=== PATIENT | female | born 2000 | race Caucasian/White ===

== ENCOUNTER 2022-09-13 17:11 | Emergency (ER) | payer MEDICAID | END 2022-09-13 18:00 | disposition left against medical advice (07) | LOC: ED 17:11 | DX: Z53.21 Procedure and treatment not carried out due to patient leaving prior to being seen by health care provider (principal) ==

== ENCOUNTER 2023-05-15 14:59 | Inpatient (IN) | payer OTHER ==
[2023-05-15] MEDS ORDERED: Lactated Ringers 1,000 ML IV ONE ×5 (15:47→22:49)
[2023-05-15] MEDS ORDERED: FENTANYL 2 MCG-BUPIV 0.125%-NS 250 ML Epidur 250 ML EPIDURAL SCH (16:00)
[2023-05-15 16:10] LABS: Absolute Neutrophil Ct (ANC) 8.32 x10^3/uL (1.4-6.9); BASOPHIL % 0.4 % (0.0-0.4); Basophil (Absolute #) 0.04 x10^3/uL (0-0.4); Eosinophil % 1.5 % (0.00-5.0); Eosinophil (Absolute #) 0.17 x10^3/uL (0-0.5); Hematocrit 36.2 % (35-47); Hemoglobin 11.7 g/dL (12.0-16.0); IMMATURE GRAN # 0.06 x10^3u/L (0.00-0.03); IMMATURE GRAN % 0.5 % (0.00-0.4); Lymphocyte (Absolute #) 1.71 x10^3/uL (1.0-4.6); Lymphocytes % 15.6 % (24.0-44.0); Mean Cell Volume 81.2 fL (78-100); Mean Corpuscular Hemoglobin 26.2 pg (26-32); Mean Corpuscular Hgb Concent. 32.3 g/dL (32-36); Mean Platelet Volume 11.1 fL (7.5-11.0); Monocyte (Absolute #) 0.68 x10^3/uL (0.0-1.3); Monocytes % 6.2 % (0.0-12.0); Neutrophil % 75.8 % (36.0-66.0); Platelet Count 217 x10^3/uL (150-450); Red Blood Count 4.46 x10^6/uL (4.1-5.4); Red Cell Distribution Width 12.7 % (11.5-14.0)
[2023-05-15] MEDS ORDERED: Ephedrine Sulfate 50 MG/ML IV PRN (16:21)
[2023-05-15 16:39] LABS: Amphetamine,Urine NEGATIVE (NEGATIVE); Barbiturate,Urine NEGATIVE (NEGATIVE); Benzodiazepine,Urine NEGATIVE (NEGATIVE); Cocaine,Urine NEGATIVE (NEGATIVE); Methadone,Urine NEGATIVE (NEGATIVE); Opiate,Urine NEGATIVE (NEGATIVE); PCP,Urine NEGATIVE (NEGATIVE); THC,Urine NEGATIVE (NEGATIVE)
[2023-05-15 16:47] LABS: ABO TYPING A
[2023-05-15 16:48] LABS: Antibody Screen NEGATIVE (NEGATIVE); RH TYPING POSITIVE
[2023-05-15] MEDS: Lactated Ringers 1,000 ML IV SCH (16:51)
--- NOTE | 2023-05-15 19:41 | PCM.HP ---
History of Present Illness - Chief Complaint Chief Complaint: labor Date: 05/15/23 History of Present Illness: is a 22 year old female G1 at 40 0/7wks entering active phase labor, with start of ctx around 0600, got strong around 1400 today. Had some bloody show that has lessened since arrival. Notes good movements. Denies other complaints or gush of fluid. - Review of Systems Constitutional: No Symptoms Abdominal/Gastrointestinal: Other (contractions) Genitourinary Symptoms: No Symptoms Medications & Allergies Home Medications: Home Medication List No Home Meds [No Home Meds] 1 ea MC UD 12/12/14 [History Confirmed 12/12/14] Smz/Tmp Ds Tablet [Bactrim Ds Tablet] 1 tab PO BID #20 tablet 12/12/14 [Rx] Allergies/Adverse Reactions: Allergies Allergy/AdvReac Type Severity Reaction Status Date / Time No Known Drug Allergies Allergy Unverified 12/12/14 17:17 - Past Medical History Past Medical History: Yes Neurological History: No Pertinent History ENT History: No Pertinent History Cardiac History: No Pertinent History Respiratory History: No Pertinent History Endocrine Medical History: No Pertinent History Musculoskelatal History: No Pertinent History GI Medical History: No Pertinent History History: No Pertinent History Pyscho-Social History: Depression, Other Reproductive Disorders: No Pertinent History Comment: Patient states, she has autism. - Female History Expected Date of Delivery: 05/15/23 - Past Surgical History Past Surgical History: Yes (colonoscopy) Neuro Surgical History: No Pertinent History Cardiac History: No Pertinent History Respiratory Surgery: No Pertinent History GI Surgical History: No Pertinent History Genitourinary Surgical Hx: No Pertinent History Musculskeletal Surgical Hx: No Pertinent History Female Surgical History: No Pertinent History - Social History Smoking Status: Former smoker Exposure to second hand smoke: No Alcohol: Rarely Drug Use: none - Physical Exam Vital Signs: Vital Signs - 24 hr Temp Pulse Resp BP BP Pulse Ox 05/15/23 19:00 98.2 F 85 20 151/72 100 05/15/23 18:00 98.8 F 72 20 130/64 05/15/23 17:00 98.8 F 81 20 150/85 05/15/23 16:41 98.8 F 76 20 124/79 98 01/28/24 16:15 98.8 F 77 20 124/79 05/15/23 15:45 98.0 F 05/15/23 14:59 98.8 F 76 20 124/79 98 General Appearance: no apparent distress, alert Neurologic Exam: alert, cooperative, normal mood/affect Eye Exam: PERRL/EOMI Neck Exam: normal inspection Respiratory Exam: No respiratory distress Cardiovascular Exam: regular rate/rhythm Gastrointestinal/Abdomen Exam: soft, No tenderness Pelvic Exam: normal external exam Extremity Exam: normal inspection Results - Labs Lab/Micro Results: Lab Results-Last 24 Hours 05/15/23 05/15/23 05/15/23 Range/Units 16:00 16:00 16:00 WBC 11.0 H (4.0-10.5) x10^3/uL RBC 4.46 (4.1-5.4) x10^6/uL Hgb 11.7 L (12.0-16.0) g/dL Hct 36.2 (35-47) % MCV 81.2 (78-100) fL MCH 26.2 (26-32) pg MCHC 32.3 (32-36) g/dL RDW 12.7 (11.5-14.0) % Plt Count 217 (150-450) x10^3/uL MPV 11.1 H (7.5-11.0) fL Gran % 75.8 H (36.0-66.0) % Immature Gran % (Auto) 0.5 H (0.00-0.4) % Nucleat RBC Rel Count 0.0 (0.00-0.1) % Eos # (Auto) 0.17 (0-0.5) x10^3/uL Immature Gran # (Auto) 0.06 H (0.00-0.03) x10^3u/L Absolute Lymphs (auto) 1.71 (1.0-4.6) x10^3/uL Absolute Monos (auto) 0.68 (0.0-1.3) x10^3/uL Absolute Nucleated RBC 0.00 (0.00-0.01) x10^3u/L Lymphocytes % 15.6 L (24.0-44.0) % Monocytes % 6.2 (0.0-12.0) % Eosinophils % 1.5 (0.00-5.0) % Basophils % 0.4 (0.0-0.4) % Absolute Granulocytes 8.32 H (1.4-6.9) x10^3/uL Basophils # 0.04 (0-0.4) x10^3/uL Urine Opiates Level NEGATIVE (NEGATIVE) Ur Methadone NEGATIVE (NEGATIVE) Urine Barbiturates NEGATIVE (NEGATIVE) Ur Phencyclidine (PCP) NEGATIVE (NEGATIVE) Urine Amphetamine NEGATIVE (NEGATIVE) U Benzodiazepine Level NEGATIVE (NEGATIVE) Urine Cocaine NEGATIVE (NEGATIVE) Urine Marijuana (THC) NEGATIVE (NEGATIVE) ABO Group A Rh Factor POSITIVE Antibody Screen NEGATIVE (NEGATIVE) Assessment/Plan (1) Normal labor Current Visit: Yes Status: Acute Assessment & Plan: 22 y/o G1 in active labor at 40 0/7wks, now comfortable with epidural and AROM performed with clear fluid. IUPC placed to assess if pitocin warranted to achieve adequate ctx (MVUs 200-300 goal or cervical change). GBS negative. status reassuring, category I. Some intermittent, mild range htn noted, so will check urine pr:cr and if elevated, do CMP as well; will follow clinically as anticipate improvement now that pain is well-controlled with epidural. Anticipate . complicated by hx PCOS and obesity. EFW [id number]. Code(s): O80 - ENCOUNTER FOR FULL-TERM UNCOMPLICATED DELIVERY; Z37.9 - OUTCOME OF DELIVERY, UNSPECIFIED
[2023-05-15 20:05] LABS: Appearance Clear (Clear); Bacteria None Seen /HPF (None Seen); Bilirubin Negative (Negative); Blood Negative (Negative); Epithelial Cells None Seen /HPF (None Seen); Glucose, Urine Negative (Negative); Hyaline Casts NONE SEEN /LPF (0-2); Ketones Trace (Negative); Leukocyte Esterase Negative (Negative); Nitrite Negative (Negative); Protein,Urine Dip 30 (Negative); RBC 0-2 /HPF (0-5); Specific Gravity 1.015 (1.005-1.030); Urobilinogen 0.2 mg/dL (0.2); WBC 0-2 /HPF (0-5)
[2023-05-15 20:06] LABS: Creatinine, Urine Random 115.6 mg/dl; Protein Creatinine Ratio, Ran. 0.23 mg/mg (0.0-0.15)
[2023-05-15 20:07] LABS: ADD URINE CULTURE? ORDERED SEPARATELY (NO)
[2023-05-15] MEDS ORDERED: PITOCIN 30 UNITS/ LR 500 ML 30 UNITS/500 ML PLAST..BAG IV SCH (20:15)
[2023-05-15] MEDS: PITOCIN 30 UNITS/ LR 500 ML 30 UNITS/500 ML PLAST..BAG IV SCH (21:00)
[2023-05-15] MEDS ORDERED: Zofran 4 MG/2 ML VIAL IV PRN (21:38)
[2023-05-15] MEDS ORDERED: XYLOCAINE 1% HCL 20 ML MDV ONE (22:28)
[2023-05-15 22:45] LABS: VBG CARBOXYHEMOGLOBIN 0.5 % T HGB (0.0-6.9); VBG HCO3- 19.2 meq/L (22-28); VBG HEMOGLOBIN 18.9; VBG O2 SATURATION 41.3 (95-100); VBG POTASSIUM 5.1 (3.5-5.1)
[2023-05-15 22:46] LABS: VBG pH 7.21 (7.32-7.42)
--- NOTE | 2023-05-15 23:34 | PCM.NOTE ---
Prolonged deceleration started at 215 to the 90s with conservative measures initiated including discontinuance of pitocin. I was called to room at 215 and found pt to be complete with disrupted monitoring. FSE applied at 220 and attempted pushing. Pt found to be ROP, about 15 degrees off of straight OP. Attempt made to digitally rotate baby to OA which was poorly tolerated. I called for kessler forceps and the OR team which had already been called. I verbally consented pt for forceps assisted delivery vs vacuum and risk of injury to baby or increased tearing for her. She consented to proceed. Pelvis adequate. Masters cut to remove. An additional attempt to rotate baby digitally was unsuccessful. Pushing efforts were poor, so pitocin was resumed at 6 milliunits/min. Fetus remained +2 station with SAL position, less than 45 degrees off of midline. Forceps arrived and pt consented to placement, but she did not tolerate the attempt at 2210, so consented instead for vacuum assistance with increased risk of injury discussed, as well as emergent need for delivery given FHR deceleration continued. Vacuum applied and correct position confirmed at 2212. With push pull efforts, had 3 popoffs and reapplication (2213 popoff & reapplication, 2215 popoff & reapplication 2216, and 2217 popoff). However, at this point, descent had been made to on the perineum, +4, but was unable to deliver with pushing alone and FHR remained in deceleration in the 90s. OR team still had not arrived, so given the descent with vacuum attempts, I recommended trial of forceps with risk of increased tearing as 3rd or 4th degree discussed. Pt consented given emergent nature of case and that OR team was not present, so outlet forceps applied with Kessler forceps and with next push/pull delivered vigorous male. Forceps were removed just before delivery of the head and delivered OP with right shoulder anterior. with strong cry placed on maternal abdomen. Delayed cord clamping done. Pitocin added to IVF bolus. Cord gases and cord blood collected. Intact placenta with 3VC delivered spontaneously at 4. Cervix, vagina, and perineum explored with note of 2nd degree laceration and left labial tear; 2nd degree was repaired with 3-0 Vicryl in a standard fashion. Labial lac was hemostatic and not repaired. QBL 150ml. APGARs 8 and 9. Wt 3700g. and mother recovering in room in good condition. Arterial gas pH 7.08, BE -13.2; venous pH 7.21, BE -9. Cytotec 1000mcg given MN at 2251.
[2023-05-16] MEDS ORDERED: TYLENOL EXTRA STRENGTH 500 MG PO PRN (00:45)
[2023-05-16] MEDS ORDERED: Mylicon 80MG PO PRN (00:45)
[2023-05-16] MEDS ORDERED: LANSINOH 40 GM TOP PRN (00:45)
[2023-05-16] MEDS ORDERED: Dermoplast Spray TP PRN (00:45)
[2023-05-16] MEDS ORDERED: NORCO 5/325 MG PO PRN (00:45)
[2023-05-16] MEDS ORDERED: Dulcolax 10 MG SUPP PR PRN (00:45)
[2023-05-16] MEDS: MOTRIN 400 MG PO PRN (00:55)
[2023-05-16 04:43] LABS: Absolute Neutrophil Ct (ANC) 12.66 x10^3/uL (1.4-6.9); BASOPHIL % 0.3 % (0.0-0.4); Basophil (Absolute #) 0.04 x10^3/uL (0-0.4); Eosinophil % 0.1 % (0.00-5.0); Eosinophil (Absolute #) 0.01 x10^3/uL (0-0.5); Hematocrit 28.8 % (35-47); IMMATURE GRAN # 0.06 x10^3u/L (0.00-0.03); IMMATURE GRAN % 0.4 % (0.00-0.4); Lymphocyte (Absolute #) 1.86 x10^3/uL (1.0-4.6); Lymphocytes % 11.7 % (24.0-44.0); Mean Cell Volume 81.8 fL (78-100); Mean Corpuscular Hemoglobin 26.1 pg (26-32); Mean Corpuscular Hgb Concent. 31.9 g/dL (32-36); Mean Platelet Volume 11.4 fL (7.5-11.0); Monocyte (Absolute #) 1.26 x10^3/uL (0.0-1.3); Monocytes % 7.9 % (0.0-12.0); Neutrophil % 79.6 % (36.0-66.0); Platelet Count 181 x10^3/uL (150-450); Red Blood Count 3.52 x10^6/uL (4.1-5.4); Red Cell Distribution Width 12.9 % (11.5-14.0); White Blood Count 15.9 x10^3/uL (4.0-10.5)
[2023-05-16 05:08] LABS: Hemoglobin 9.2 g/dL (12.0-16.0)
[2023-05-16] MEDS: PITOCIN 30 UNITS/ LR 500 ML 30 UNITS/500 ML PLAST..BAG IV SCH (06:36)
[2023-05-16] MEDS ORDERED: Adacel Vial IM ONE (08:00)
[2023-05-16] MEDS: TUCKS TP PRN (09:22)
[2023-05-16] MEDS: Docusate Sodium 100 MG PO SCH (09:23)
[2023-05-16] MEDS: Anucort-HC SUPPOSITORY PR PRN (09:32)
[2023-05-16] MEDS ORDERED: FERREX 150 PO SCH (10:00)
[2023-05-16] MEDS ORDERED: SODIUM CHLORIDE 0.9% IV ONE (16:00)
[2023-05-16] MEDS ORDERED: VENOFER IV ONE (16:00)
[2023-05-17] MEDS: Docusate Sodium 100 MG PO SCH ×3 (01:27→20:12)
[2023-05-17] MEDS: TUCKS TP PRN ×2 (02:37→17:28)
[2023-05-17] MEDS: Anucort-HC SUPPOSITORY PR PRN ×2 (02:43→17:33)
[2023-05-17] MEDS: Lactated Ringers 1,000 ML IV SCH ×3 (03:06→03:08)
[2023-05-17] MEDS: PITOCIN 30 UNITS/ LR 500 ML 30 UNITS/500 ML PLAST..BAG IV SCH (03:06)
[2023-05-17] MEDS ORDERED: CORTISONE 1% CREAM TP PRN (08:59)
[2023-05-17] MEDS: TYLENOL EXTRA STRENGTH 500 MG PO PRN (20:12)
[2023-05-18] MEDS: MOTRIN 400 MG PO PRN (03:30)
[2023-05-18] MEDS: TYLENOL EXTRA STRENGTH 500 MG PO PRN (03:31)
[2023-05-18 03:39] VITALS: O2SAT 99
[2023-05-18 09:31] VITALS: BP 135/73; PULSE 76; RESP 14; TEMP 97.6
[2023-05-18] MEDS: Docusate Sodium 100 MG PO SCH (11:56)
== END 2023-05-18 15:10 | disposition home or self-care (01) | DRG 806 ==
LOC: OBSVTOIN 14:59 → OB 14:59
PROVIDERS: ADMIT Obstetrics & Gynecology; ATTEND Obstetrics & Gynecology
PROC: 10E0XZZ Delivery of Products of Conception, External Approach (ICD-10-PCS; principal; 2023-05-15)
PROC: 0KQM0ZZ Repair Perineum Muscle, Open Approach (ICD-10-PCS; 2023-05-15)
DX: O70.1 Second degree perineal laceration during delivery (principal); F84.0 Autistic disorder; Z37.0 Single live birth; Z3A.40 40 weeks gestation of pregnancy; Z20.828 Contact with and (suspected) exposure to other viral communicable diseases; Z59.811 Housing instability, housed, with risk of homelessness
CPT/HCPCS: 36415; 36600; 80307; 81001; 82375; 82570; 82803; 82805; 84156; 85025; 86850; 86900; 86901; 87086; 88720; 90715; 96372; J1756; J2405; J2590; A9270-GY